=== PATIENT | male | born 1950 | race Caucasian/White ===

== ENCOUNTER 2021-03-05 12:30 | Inpatient (IN) | payer OTHER ==
[~2021-03-05] VITALS: Ht 162.6 cm; Wt 66.2 kg
[~2021-03-05 12:30] MED LIST: AMLO1TAB12 PO; EZET10TA16 PO; ROSU20TA2 PO
--- NOTE | 2021-03-05 12:38 | NUR ---
C/O BUTTOCK & R HIP PAIN S/P GLF TODAY -DEFORMITY. PATIENT A/OX4, BREATHING EVEN AND UNLABORED, NO SOB NOTED. NEEDS ATTENDED. KEPT COMFORTABLE.
--- NOTE | 2021-03-05 12:40 | NUR ---
DR. LEI AT BEDSIDE FOR EVAL.
[2021-03-05] MEDS ORDERED: ONDANSETRON HCL/PF 4 MG/2 ML VIAL ONE (12:52)
[2021-03-05] MEDS ORDERED: MORPHINE SULFATE INJ 2 MG/ML DISP.SYRIN ONE ×2 (12:53→16:34)
[2021-03-05] MEDS ORDERED: ONDANSETRON HCL/PF 4 MG/2 ML VIAL IVP ONE (13:00)
[2021-03-05] MEDS ORDERED: MORPHINE SULFATE INJ 2 MG/ML DISP.SYRIN IV ONE ×2 (13:00→17:00)
[2021-03-05 13:12] LABS: BASOPHILS % (AUTO) 0.8 % (0.0-2.0); EOSINOPHILS % (AUTO) 0.5 % (0.0-6.0); HEMATOCRIT 29 % (39-51); HEMOGLOBIN 9.8 g/dL (13.5-17.5); LYMPHOCYTES # (AUTO) 0.4 K/uL (0.8-4.8); LYMPHOCYTES % (AUTO) 6.7 % (20.0-44.0); MEAN CORPUSCULAR HGB CONC 34 g/dl (31.0-36.0); MEAN CORPUSCULAR VOLUME 95 fL (80-96); MONOCYTES # (AUTO) 0.6 K/uL (0.1-1.30); MONOCYTES % (AUTO) 10.4 % (2.0-12.0); NEUTROPHILS % (AUTO) 81.6 % (43.0-81.0); PLATELET COUNT (AUTO) 216 K/uL (150-450); RED BLOOD CELL COUNT(AUTO) 3.02 MIL/uL (4.5-6.0); WHITE BLOOD COUNT (AUTO) 6.1 K/uL (4.3-11.0)
[2021-03-05 13:21] LABS: CALCIUM, SERUM 9.4 mg/dL (8.5-10.1); CARBON DIOXIDE 23 mmol/L (21-32); CHLORIDE 105 mmol/L (98-107); CREATININE 1.6 mg/dL (0.6-1.3); GLUCOSE 90 mg/dL (74-106); POTASSIUM 4.4 mmol/L (3.5-5.1); SODIUM SERUM 140 mmol/L (136-145); UREA NITROGEN, BLOOD 15 mg/dL (7-18)
[2021-03-05 13:26] LABS: ALANINE AMINOTRANSFERASE 36 U/L (12-78); ALBUMIN 3.5 g/dL (3.4-5.0); ALKALINE PHOSPHATASE 110 U/L (46-116); ASPARTATE AMINOTRANSFERASE 84 U/L (15-37); BILIRUBIN,DIRECT 0.3 mg/dL (0.0-0.2); TOTAL PROTEIN, SERUM 6.3 g/dL (6.4-8.2)
--- NOTE | 2021-03-05 14:42 | NUR ---
PATIENT TAKEN TO CT.
[2021-03-05] MEDS ORDERED: MULT-447 PO (14:47)
[2021-03-05] MEDS ORDERED: SERT50TA12 PO (14:47)
[2021-03-05] MEDS ORDERED: MAGN400T51 PO (14:47)
[2021-03-05] MEDS ORDERED: PANT40TA49 PO (14:47)
[2021-03-05] MEDS ORDERED: POLY15DR40 EACHEYE (14:47)
[2021-03-05] MEDS ORDERED: CARV6.252 PO (14:47)
[2021-03-05] MEDS ORDERED: LORA-258 PO (14:47)
[2021-03-05] MEDS ORDERED: CHOL100062 PO (14:47)
[2021-03-05] MEDS ORDERED: CARB1TAB21 PO (14:47)
[2021-03-05] MEDS ORDERED: DICL100G34 TP (14:47)
[2021-03-05] MEDS ORDERED: OXYM15MI4 NS (14:48)
--- NOTE | 2021-03-05 15:38 | NUR ---
CALLED NURSING SUP FOR M/S BED.
--- NOTE | 2021-03-05 16:00 | NUR ---
NURSING SUP GAVE [phone].
--- NOTE | 2021-03-05 16:25 | NUR ---
REPORT GIVEN TO KWASI BAUTISTA IN [facility]. PATIENT A/OX4, BREATHING EVEN AND UNLABORED, NO SOB NOTED. NEEDS ATTENDED.
--- NOTE | 2021-03-05 16:42 | NUR ---
DR. VICTOR AT BEDSIDE FOR EVAL.
--- NOTE | 2021-03-05 16:58 | NUR ---
PATIENT TRANSFERRED TO ROOM 319 INS TABLE CONDITION.
--- NOTE | 2021-03-05 17:00 | NUR ---
EXTRACT MIXER NOTE RECEIVED PATIENT VIA [facility]. PATIENT IS A/O X4. PATIENT IS BREATHING EVENLY AND NONLABORED ON ROOM AIR. NO SIGNS OF DISTRESS NOTED. PATIENT COMPLAINS OF RIGHT HIP PAIN, WILL NOTIFY MD. PATIENTS VITALS 137/76, HR 88, TEMP 97.8, RR 18 AND O2 SAT 98%. PATIENTS BELONGINGS ACCOUNTED FOR. PATIENT IS NOTED WITH LT ARM DISCOLORATION, BILATERAL LOWER LEG DISCOLORATION AND RT ARE DISCOLORATION. NO OPEN WOUNDS NOTED. PATIENT HAS IV ACCESS LEFT HAND # 22 GAUGE PATENT AND INTACT. PATIENT WAS ORIENTED TO THE ROOM AND HOW TO USE THE CALL LIGHT. SAFETY MEASURES IN PLACE, BED LOW, LOCKED AND CALL LIGHT WITHIN REACH. WILL CONTINUE TO MONITOR
[2021-03-05] MEDS ORDERED: IV D5/ 0.9% NACL 1,000 ML IV ONE (18:00)
[2021-03-05] MEDS ORDERED: POLYVINYL ALCOHOL 15 ML BOTTLE OP PRN (18:30)
[2021-03-05] MEDS: CARBIDOPA/LEVODOPA 25/100 MG 1 UDTAB PO SCH (18:35)
[2021-03-05] MEDS: MORPHINE SULFATE INJ 2 MG/ML DISP.SYRIN IV PRN (18:35)
--- NOTE | 2021-03-05 18:48 | NUR ---
MS RN CLOSING NOTE PATIENT RESTING IN BED, PATIENT IS A/O X4. PATIENT IS BREATHING EVENLY AND NONLABORED ON ROOM AIR. NO SIGNS OF DISTRESS NOTED. PATIENT COMPLAINS OF RIGHT HIP PAIN, MD NOTIFIED WITH NEW ORDER FOR MORPHINE 2MG IV 2HRS PRN, MEDICATION GIVEN ORDERED. PATIENT IS NOTED WITH LT ARM DISCOLORATION, BILATERAL LOWER LEG DISCOLORATION AND RT ARE DISCOLORATION. NO OPEN WOUNDS NOTED. PATIENT HAS IV ACCESS LEFT HAND # 22 GAUGE PATENT AND INTACT RUNNING D5 NS @ 75 ML/HR. SAFETY MEASURES IN PLACE, BED LOW, LOCKED AND CALL LIGHT WITHIN REACH. WILL ENDORSE TO ONCOMING SHIFT
--- NOTE | 2021-03-05 19:00 | NUR ---
Patient is awake, A&Ox4. States that PRN Morphine has not fully kicked in yet. Will check back later. In no cardiac or respiratory distress. All safety measures in place. Reminded of possible surgery and or other procedures in AM and to stay NPO after midnight. On bed rest. IV intact patent and infusing.
[2021-03-05 20:00] VITALS: BP 118/74
[2021-03-05 20:12] LABS: IRON, SERUM 40 ug/dl (50-175); TOTAL IRON BINDING CAPACITY 182 ug/dl (250-450)
[2021-03-05 20:24] LABS: BASOPHILS # (AUTO) 0.1 K/uL (0.0-0.2); BASOPHILS % (AUTO) 1.2 % (0.0-2.0); EOSINOPHILS % (AUTO) 0.3 % (0.0-6.0); HEMATOCRIT 29 % (39-51); HEMOGLOBIN 9.7 g/dL (13.5-17.5); LYMPHOCYTES # (AUTO) 0.4 K/uL (0.8-4.8); MEAN CORPUSCULAR HGB CONC 34 g/dl (31.0-36.0); MEAN CORPUSCULAR VOLUME 96 fL (80-96); MONOCYTES # (AUTO) 0.8 K/uL (0.1-1.30); MONOCYTES % (AUTO) 16.1 % (2.0-12.0); NEUTROPHILS # (AUTO) 3.8 K/uL (1.8-8.9); NEUTROPHILS % (AUTO) 74.4 % (43.0-81.0); PLATELET COUNT (AUTO) 218 K/uL (150-450); RED BLOOD CELL COUNT(AUTO) 2.96 MIL/uL (4.5-6.0); WHITE BLOOD COUNT (AUTO) 5.1 K/uL (4.3-11.0)
[2021-03-05 20:49] LABS: CHOLESTEROL 185 mg/dL (<200); FERRITIN 2240 ng/mL (8-388); HDL CHOLESTEROL 46 mg/dL (40-60); LDL 109 mg/dL (0-99); THYROID STIMULATING HORMONE 1.228 uIU/mL (0.358-3.74); TRIGLYCERIDES 99 mg/dL (30-150)
[2021-03-05] MEDS: LORAZEPAM 0.5 MG TABLET PO PRN (20:50)
--- NOTE | 2021-03-06 05:50 | NUR ---
mrsa swab collected and put in fridge
[2021-03-06] MEDS: MORPHINE SULFATE INJ 2 MG/ML DISP.SYRIN IV PRN ×2 (05:51→08:55)
[2021-03-06 06:27] LABS: ALANINE AMINOTRANSFERASE 38 U/L (12-78); ALKALINE PHOSPHATASE 100 U/L (46-116); ASPARTATE AMINOTRANSFERASE 47 U/L (15-37); BILIRUBIN,TOTAL 0.9 mg/dL (0.2-1.0); CALCIUM, SERUM 8.5 mg/dL (8.5-10.1); CARBON DIOXIDE 24 mmol/L (21-32); CHLORIDE 104 mmol/L (98-107); CREATININE 1.3 mg/dL (0.6-1.3); GLUCOSE 119 mg/dL (74-106); MAGNESIUM 1.9 mg/dL (1.8-2.4); PHOSPHORUS 3.5 mg/dL (2.5-4.9); POTASSIUM 3.7 mmol/L (3.5-5.1); SODIUM SERUM 137 mmol/L (136-145); TOTAL PROTEIN, SERUM 5.8 g/dL (6.4-8.2); UREA NITROGEN, BLOOD 13 mg/dL (7-18)
--- NOTE | 2021-03-06 06:32 | NUR ---
Patient slept well throughout night though easy to wake. Has been NPO since midnight. Continues on IVF. #20G to LFA intact and patent. Patient educated about AM surgical consult and possible surgical intervention. Only c/o pain x1 to R hip relieved by PRN Morphine. Able to use urinal for , no BM overnight. No overnight events. Will continue to monitor.
[2021-03-06 06:51] LABS: BASOPHILS % (AUTO) 0.9 % (0.0-2.0); EOSINOPHILS % (AUTO) 0.6 % (0.0-6.0); HEMATOCRIT 28 % (39-51); HEMOGLOBIN 9.9 g/dL (13.5-17.5); LYMPHOCYTES # (AUTO) 0.4 K/uL (0.8-4.8); LYMPHOCYTES % (AUTO) 9.3 % (20.0-44.0); MEAN CORPUSCULAR HGB CONC 35 g/dl (31.0-36.0); MEAN CORPUSCULAR VOLUME 96 fL (80-96); MONOCYTES % (AUTO) 20.3 % (2.0-12.0); NEUTROPHILS # (AUTO) 3.2 K/uL (1.8-8.9); NEUTROPHILS % (AUTO) 68.9 % (43.0-81.0); PLATELET COUNT (AUTO) 195 K/uL (150-450); RED BLOOD CELL COUNT(AUTO) 2.94 MIL/uL (4.5-6.0); WHITE BLOOD COUNT (AUTO) 4.7 K/uL (4.3-11.0)
--- NOTE | 2021-03-06 08:00 | NUR ---
RN OPENING NOTE: REPORT RECEIVED, ASSESSMENT COMPLETE. RECEIVED PT LYING IN BED. NO ACUTE DISTRESS NOTED. PT CURRENTLY NPO. AWAITING PLAN FOR SURGERY. A+OX4, ABLE TO MAKE NEEDS KNOWN. VSS, AFEBRILE NO SOB NOTED. PT CONTINENT AND USING URINAL AT BEDSIDE. NO COMPLAINTS OF PAIN AT CURRENT TIME. BED IN LOW AND LOCKED POSITION WITH SIDE RAILS UP X 2. CALL LIGHT WITHIN REACH. WILL CONT TO MONITOR PT FOR SAFETY AND COMFORT.
--- NOTE | 2021-03-06 08:10 | NUR ---
RN NOTE: CALL FROM DR. SEALS. NO SURGERY TO BE SCHEDULED TODAY. POSSIBLY TOMORROW. NPO STATUS TO BE D/C'D.
[2021-03-06] MEDS: PANTOPRAZOLE 40 MG TABLET.DR PO SCH (08:18)
[2021-03-06 08:19] VITALS: BP 132/74
[2021-03-06] MEDS: CHOLECALCIFEROL 1,000 UNIT TABLET (VIT D3) PO SCH (08:53)
[2021-03-06] MEDS: CARBIDOPA/LEVODOPA 25/100 MG 1 UDTAB PO SCH ×3 (08:53→16:56)
[2021-03-06] MEDS: MULTIVIT W/MINERALS 1 TAB TABLET PO SCH (08:54)
[2021-03-06] MEDS: MAGNESIUM OXIDE 400 MG TABLET PO SCH (08:54)
[2021-03-06] MEDS: SERTRALINE HCL 50 MG TABLET PO SCH (08:54)
--- NOTE | 2021-03-06 08:55 | NUR ---
RN NOTE: PAIN PT C/O/81/0 RIGHT HIP PAIN. REQUESTING PAIN MEDICATION. ADMINISTERED MORPHINE SULFATE 2MG IVP. WILL CONT TO MONITOR PAIN SCALE AND PRN MEDICATION EFFECTIVENESS
[2021-03-06 14:05] LABS: LYMPHOCYTES % (MANUAL) 9 % (16-48); MONOCYTES % (MANUAL) 17 % (0-11.0); NEUTROPHILS % (MANUAL) 74 (42-76)
[2021-03-06 16:34] VITALS: BP 130/73
[2021-03-06] MEDS: LORAZEPAM 0.5 MG TABLET PO PRN (16:56)
--- NOTE | 2021-03-06 16:57 | NUR ---
RN NOTE: ANXIETY PT EXHIBITING INCREASED ANXIETY. MEDICATED WITH ATIVAN 0.5 MG PO PRN.
--- NOTE | 2021-03-06 19:31 | NUR ---
Patient resting at this time though easy to wake. Aware of surgery scheduled for tomorrow 03/07 at 1400 and he will need to be NPO at least 8 hours prior. Patient states pain is tolerable at this time. NO other issues at this time. Will continue to monitor.
[2021-03-06 20:00] VITALS: BP 119/67
--- NOTE | 2021-03-06 21:27 | NUR ---
IV line out of place. Unable to get new IV access. Called Dr. Becker said okay to schedule for Midline in AM prior to procedure. Order input.
--- NOTE | 2021-03-07 | NUR ---
ICU nurse was able to insert #22G IV to LFA for pain medication administration until midline can be placed in AM.
[2021-03-07] MEDS: MORPHINE SULFATE INJ 2 MG/ML DISP.SYRIN IV PRN (00:22)
[2021-03-07 06:46] LABS: BASOPHILS # (AUTO) 0.1 K/uL (0.0-0.2); BASOPHILS % (AUTO) 1.3 % (0.0-2.0); EOSINOPHILS % (AUTO) 1.6 % (0.0-6.0); HEMATOCRIT 27 % (39-51); HEMOGLOBIN 9.5 g/dL (13.5-17.5); LYMPHOCYTES # (AUTO) 0.5 K/uL (0.8-4.8); LYMPHOCYTES % (AUTO) 12.3 % (20.0-44.0); MEAN CORPUSCULAR HGB CONC 35 g/dl (31.0-36.0); MEAN CORPUSCULAR VOLUME 94 fL (80-96); MONOCYTES # (AUTO) 0.8 K/uL (0.1-1.30); MONOCYTES % (AUTO) 18.6 % (2.0-12.0); NEUTROPHILS # (AUTO) 2.9 K/uL (1.8-8.9); NEUTROPHILS % (AUTO) 66.2 % (43.0-81.0); PLATELET COUNT (AUTO) 227 K/uL (150-450); RED BLOOD CELL COUNT(AUTO) 2.86 MIL/uL (4.5-6.0); WHITE BLOOD COUNT (AUTO) 4.4 K/uL (4.3-11.0)
--- NOTE | 2021-03-07 07:00 | NUR ---
Patient slept well throughout night after pain medication administration at 0022. No other issues. Kept on DVT pumps. Consnts for upcoming surgery completed.
[2021-03-07 07:13] LABS: CALCIUM, SERUM 8.6 mg/dL (8.5-10.1); CREATININE 0.8 mg/dL (0.6-1.3); MAGNESIUM 1.9 mg/dL (1.8-2.4); PHOSPHORUS 3.6 mg/dL (2.5-4.9); POTASSIUM 3.7 mmol/L (3.5-5.1)
[2021-03-07] MEDS: SERTRALINE HCL 50 MG TABLET PO SCH (09:06)
[2021-03-07] MEDS: CHOLECALCIFEROL 1,000 UNIT TABLET (VIT D3) PO SCH (09:06)
[2021-03-07] MEDS: MULTIVIT W/MINERALS 1 TAB TABLET PO SCH (09:06)
[2021-03-07] MEDS: PANTOPRAZOLE 40 MG TABLET.DR PO SCH (09:06)
[2021-03-07] MEDS: CARBIDOPA/LEVODOPA 25/100 MG 1 UDTAB PO SCH ×3 (09:06→17:00)
[2021-03-07] MEDS: MAGNESIUM OXIDE 400 MG TABLET PO SCH (09:06)
[2021-03-07 10:34] LABS: BAND % (MANUAL) 1 % (0.0-5.0); EOSINOPHILS % (MANUAL) 2 % (0-4); LYMPHOCYTES % (MANUAL) 11 % (16-48); MONOCYTES % (MANUAL) 17 % (0-11.0); NEUTROPHILS % (MANUAL) 69 (42-76)
[2021-03-07] MEDS ORDERED: POLYMYXIN B SULFATE 500,000 UNITS ONE ×2 (13:55→14:51)
[2021-03-07] MEDS ORDERED: BUPIVACAINE 0.5 % PF 150 MG/30 ML VIAL ONE (13:55)
[2021-03-07] MEDS ORDERED: MIDAZOLAM HCL 2 MG/2ML VIAL ONE (14:06)
[2021-03-07] MEDS ORDERED: FENTANYL PF 250MCG/5ML AMPUL ONE (14:06)
[2021-03-07] MEDS ORDERED: FAMOTIDINE/PF INJ 20 MG/2 ML VIAL IV ONE (14:07)
[2021-03-07] MEDS ORDERED: ROCURONIUM BROMIDE 50 MG/5 ML ONE (14:07)
[2021-03-07] MEDS ORDERED: TRANEXAMIC ACID 1,000 MG in IV NS 0.9% 100 ML IV ONE (14:30)
[2021-03-07] MEDS ORDERED: MORPHINE SULFATE INJ 4 MG/ML DISP.SYRIN ONE (14:51)
[2021-03-07] MEDS ORDERED: KETOROLAC TROMETHAMINE INJ 30 MG/ML VIAL ONE (14:51)
[2021-03-07] MEDS ORDERED: LIDOCAINE 2% 50 ML MDV IJ ONE (14:51)
[2021-03-07] MEDS ORDERED: VANCOMYCIN 1 GM VIAL ONE (14:55)
[2021-03-07] MEDS ORDERED: FENTANYL PF 100MCG/2ML AMPUL ONE (17:17)
[2021-03-07] MEDS ORDERED: ALBUMIN 5% 250 ML IV ONE (17:20)
--- NOTE | 2021-03-07 19:15 | NUR ---
RN NOTE RECIEVED PT FROM PACU @ 1856, PT VITALS TAKEN AND ON O2 FOR COMFORT POST SURGERY, POST OP VITALS 99/69 , P 72 , TEMP 97.8 , RR 18 , O2 P8% ON RA AND O2. Pharmacy called twice @ 1855 and @ 1905 for H&H blood draw. REPORT GIVEN TO NIGHT NURSE FOR JOHN.
[2021-03-07 20:00] VITALS: BP 99/47
--- NOTE | 2021-03-07 20:01 | NUR ---
RN OPENING RECEIVED PATIENT IN BED. CONFUSED RIGHT NOW -- CAME BACK FROM SURGERY. NO S/S OF APPARENT DISTRESS IN ROOM AIR. NO C/O PAIN AT THIS TIME. NO FLUIDS RUNNING AT THIS TIME. SAFETY IN PLACE. WILL CONTINUE TO MONITOR.
[2021-03-07 20:02] LABS: HEMOGLOBIN 9.3 g/dL (13.5-17.5)
[2021-03-07] MEDS: SOD FERRIC GLUC 125 MG in IV NS 0.9% 100 ML IV SCH (20:08)
[2021-03-07] MEDS: CLINDAMYCIN 900 MG in IV D5W 50 ML IV SCH (23:04)
[2021-03-08] MEDS: VANCOMYCIN 500 MG in IV D5W 100ml IV SCH ×2 (00:02→08:22)
[2021-03-08] MEDS: MORPHINE SULFATE INJ 2 MG/ML DISP.SYRIN IV PRN ×2 (02:01→06:26)
--- NOTE | 2021-03-08 02:06 | NUR ---
MS RN NOTE PATIENT C/O 03/06 PAIN. GIVEN MORPHINE SULFATE INJ IV 2MG. WILL REASSESS AND CONTINUE TO MONITOR.
--- NOTE | 2021-03-08 06:26 | NUR ---
MS RN NOTES PATIENT C/O 10/ PAIN. ADMINISTERED MORPHINE 2MG PRN. WILL REASSESS.
[2021-03-08] MEDS: CLINDAMYCIN 900 MG in IV D5W 50 ML IV SCH (06:31)
--- NOTE | 2021-03-08 06:52 | NUR ---
MS RN CLOSING NOTE PATIENT IN BED. A/OX4. NO S/S OF APPARENT DISTRESS. NO C/O PAIN AT THIS TIME PAIN MANAGED WITH MEDICATIONS. IV CLINDAMYCIN RUNNING AT THIS TIME. ALL NEEDS ATTENDED. ALL SCHED MEDICATION ADMINISTERED. CALLAHAN CATH DRAINING CLOUDY YELLOW URINE WITH OUTPUT OF 400 CC-- IRRIGATED. SAFETY KEPT IN PLACE THE WHOLE SHIFT. WILL ENDORSE CARE TO MORNING SHIFT RN.
--- NOTE | 2021-03-08 07:30 | NUR ---
RN-NOTES RECEIVED PATIENT SLEEPING WITH BREATHING EVEN AND NONLABORED,EASILY AROUSED,NO ACUTE DISTRESS NOTED. IV LINE ON LEFT FA AND PAGE MIDLINE, INTACT NO S/S OF COMPLICATION NOTED AT THIS TIME.PATIENT USING URINALS. CALL LIGHT WITHIN REACH . WILL CONT. MONITORING FOR SAFETY.
[2021-03-08 08:00] VITALS: BP 102/61
[2021-03-08 09:31] LABS: BASOPHILS # (AUTO) 0.1 K/uL (0.0-0.2); BASOPHILS % (AUTO) 1.2 % (0.0-2.0); EOSINOPHILS % (AUTO) 0.2 % (0.0-6.0); HEMATOCRIT 23 % (39-51); HEMOGLOBIN 7.9 g/dL (13.5-17.5); LYMPHOCYTES # (AUTO) 0.4 K/uL (0.8-4.8); LYMPHOCYTES % (AUTO) 5.6 % (20.0-44.0); MEAN CORPUSCULAR HGB CONC 35 g/dl (31.0-36.0); MEAN CORPUSCULAR VOLUME 96 fL (80-96); MONOCYTES % (AUTO) 15.1 % (2.0-12.0); NEUTROPHILS # (AUTO) 5.3 K/uL (1.8-8.9); NEUTROPHILS % (AUTO) 77.9 % (43.0-81.0); PLATELET COUNT (AUTO) 292 K/uL (150-450); RED BLOOD CELL COUNT(AUTO) 2.37 MIL/uL (4.5-6.0); WHITE BLOOD COUNT (AUTO) 6.8 K/uL (4.3-11.0)
[2021-03-08] MEDS: PANTOPRAZOLE 40 MG TABLET.DR PO SCH (10:10)
[2021-03-08] MEDS: MAGNESIUM OXIDE 400 MG TABLET PO SCH (10:10)
[2021-03-08] MEDS: SERTRALINE HCL 50 MG TABLET PO SCH (10:10)
[2021-03-08] MEDS: CHOLECALCIFEROL 1,000 UNIT TABLET (VIT D3) PO SCH (10:10)
[2021-03-08] MEDS: CARBIDOPA/LEVODOPA 25/100 MG 1 UDTAB PO SCH ×3 (10:10→17:18)
[2021-03-08] MEDS: MULTIVIT W/MINERALS 1 TAB TABLET PO SCH (10:10)
--- NOTE | 2021-03-08 11:22 | NUR ---
RN-notes Seen by Dr. Bowers with verbal orders.Noted and carried out.
[2021-03-08] MEDS ORDERED: HYDROCODONE/APAP 5/325MG TABLET PO PRN ×2 (11:30)
[2021-03-08] MEDS: SOD FERRIC GLUC 125 MG in IV NS 0.9% 100 ML IV SCH (14:51)
[2021-03-08 15:12] LABS: HEMATOCRIT 24 % (39-51); HEMOGLOBIN 8.6 g/dL (13.5-17.5); MEAN CORPUSCULAR HGB CONC 36 g/dl (31.0-36.0); MEAN CORPUSCULAR VOLUME 96 fL (80-96); PLATELET COUNT (AUTO) 344 K/uL (150-450); RED BLOOD CELL COUNT(AUTO) 2.53 MIL/uL (4.5-6.0)
[2021-03-08 16:00] VITALS: BP 92/53
--- NOTE | 2021-03-08 18:21 | NUR ---
RN-NOTES PATIENT LYING IN BED INTERMITTENTLY SLEEPING ,NO ACUTE DISTRESS NOTED. PATIENT PAGE, AND LFA IV LINE INTACT NO S/S OF COMPLICATION NOTED AT THE SITE AT THIS TIME. PATIENT A/O X3 ABLE TO MAKE NEEDS KNOWN. ENCOURAGED TO REPOSITION 2 HR TO PREVENT FROM DEVELOPING SORES. PATIENT VERBALIZED UNDERSTANDING. CALL LIGHT WITHIN REACH.ALL NEEDS ATTENDED AND ANTICIPATED. WILL ENDORSE TO INCOMING NURSE FOR CONTINUITY OF CARE..
[2021-03-08] MEDS: ENSURE ENLIVE CHOC 237 ML CAN PO SCH (19:01)
[2021-03-08] MEDS: ASCORBIC ACID 500 MG TABLET PO SCH (19:03)
[2021-03-08] MEDS: CALCIUM CARB 250MG /VITAMIN D 1 UDTAB PO SCH (19:03)
[2021-03-08] MEDS: ZINC SULFATE 220 MG CAPSULE PO SCH (19:03)
--- NOTE | 2021-03-08 19:57 | NUR ---
RN OPENING NOTES: RECEIVED PATIENT AWAKE IN BED, BED IN LOW POSITION, CALL LIGHTS WITHIN REACH, NO COMPLAIN OD PAIN AND DISCOMFORT AT THIS TIME, PATIENT IS A/O X4 INCONTINENT, USING URINALS, ON REGULAR DIET, PATIENT KEPT CLEAN AND DRY, WILL CONTINUE TO MONITOR.
[2021-03-08 20:00] VITALS: BP 95/56
[2021-03-08 22:46] LABS: HEMATOCRIT 23 % (39-51); MEAN CORPUSCULAR HGB CONC 35 g/dl (31.0-36.0); MEAN CORPUSCULAR VOLUME 95 fL (80-96); PLATELET COUNT (AUTO) 236 K/uL (150-450); RED BLOOD CELL COUNT(AUTO) 2.44 MIL/uL (4.5-6.0); WHITE BLOOD COUNT (AUTO) 7.2 K/uL (4.3-11.0)
[2021-03-09] MEDS: HYDROCODONE/APAP 5/325MG TABLET PO PRN ×2 (05:31→14:32)
--- NOTE | 2021-03-09 06:38 | NUR ---
MS RN CLOSING NOTE: PATIENT AWAKE IN BED, NO COMPLAIN OF PAIN AND DISCOMFORT AT THIS TIME, A/OX4 AMBULATORY WITH WALKER WITH IV LINE AT LFA #22 SL. AND PAGE MIDLINE INFUSING WELL, PATIENT ON ROOM AIR, NO SOB NOTED, NO BLEEDING ON SURGICAL SITE, ALL NEEDS MET, KEPT CLEAN AN DRY, ENDORSE TO INCOMING SHIFT.
[2021-03-09 07:13] LABS: BASOPHILS % (AUTO) 0.7 % (0.0-2.0); EOSINOPHILS % (AUTO) 0.1 % (0.0-6.0); HEMATOCRIT 21 % (39-51); HEMOGLOBIN 7.4 g/dL (13.5-17.5); LYMPHOCYTES # (AUTO) 0.4 K/uL (0.8-4.8); MEAN CORPUSCULAR HGB CONC 36 g/dl (31.0-36.0); MEAN CORPUSCULAR VOLUME 95 fL (80-96); MONOCYTES % (AUTO) 15.8 % (2.0-12.0); NEUTROPHILS % (AUTO) 77.4 % (43.0-81.0); PLATELET COUNT (AUTO) 229 K/uL (150-450); RED BLOOD CELL COUNT(AUTO) 2.18 MIL/uL (4.5-6.0); WHITE BLOOD COUNT (AUTO) 6.5 K/uL (4.3-11.0)
[2021-03-09 07:36] LABS: CALCIUM, SERUM 8.2 mg/dL (8.5-10.1); CREATININE 1.1 mg/dL (0.6-1.3); MAGNESIUM 1.7 mg/dL (1.8-2.4); PHOSPHORUS 3.9 mg/dL (2.5-4.9); POTASSIUM 3.9 mmol/L (3.5-5.1)
[2021-03-09] MEDS: ENSURE ENLIVE CHOC 237 ML CAN PO SCH ×3 (08:00→18:32)
[2021-03-09] MEDS: CALCIUM CARB 250MG /VITAMIN D 1 UDTAB PO SCH ×3 (08:34→18:32)
[2021-03-09] MEDS: SERTRALINE HCL 50 MG TABLET PO SCH (08:34)
[2021-03-09] MEDS: CHOLECALCIFEROL 1,000 UNIT TABLET (VIT D3) PO SCH (08:34)
[2021-03-09] MEDS: ZINC SULFATE 220 MG CAPSULE PO SCH (08:34)
[2021-03-09] MEDS: PANTOPRAZOLE 40 MG TABLET.DR PO SCH (08:34)
[2021-03-09] MEDS: ASCORBIC ACID 500 MG TABLET PO SCH ×2 (08:34→18:34)
[2021-03-09] MEDS: MAGNESIUM OXIDE 400 MG TABLET PO SCH (08:34)
[2021-03-09] MEDS: MULTIVIT W/MINERALS 1 TAB TABLET PO SCH (08:34)
[2021-03-09] MEDS: CARBIDOPA/LEVODOPA 25/100 MG 1 UDTAB PO SCH ×3 (08:35→18:32)
[2021-03-09 09:45] VITALS: BP 94/56
[2021-03-09 10:24] LABS: EOSINOPHILS % (MANUAL) 1 % (0-4); LYMPHOCYTES % (MANUAL) 6 % (16-48); MONOCYTES % (MANUAL) 13 % (0-11.0); NEUTROPHILS % (MANUAL) 80 (42-76)
[2021-03-09 16:18] VITALS: BP 104/60
[2021-03-09] MEDS: SOD FERRIC GLUC 125 MG in IV NS 0.9% 100 ML IV SCH (16:25)
[2021-03-09] MEDS: LORAZEPAM 0.5 MG TABLET PO PRN (16:52)
[2021-03-09 17:51] LABS: HEMOGLOBIN 7.4 g/dL (13.5-17.5)
--- NOTE | 2021-03-09 19:20 | NUR ---
MS RN OPENING NOTE PATIENT A/OX3; ABLE TO MAKE NEEDS KNOWN. FOUND PATIENT SITTING ON THE FLOOR STATING "I DIDNT FALL I SLIPPED." PATIENT DENIES PAIN OR HITTING HEAD. SKIN INTACT AND NO DISCOLORATION. VSS WNL. TOLERATING ROOM AIR WELL WITH NO SOB. LFA #22G S/L; AND LFA #22G S/L; AND PAGE MIDLINE S/L; PATENT AND INTACT. SAFETY MEASURES IN PLACE: BED IN LOWEST LOCKED POSITION, SIDE RAILS UPX2, CALL LIGHT WITHIN EASY REACH, BED ALARMS ON. PATIENT IN STABLE CONDITION; WILL CONT. PLAN OF CARE.
[2021-03-09 20:00] VITALS: BP 133/78
[2021-03-10] VITALS: BP 126/74
[2021-03-10] MEDS: MORPHINE SULFATE INJ 2 MG/ML DISP.SYRIN IV PRN ×2 (01:16→09:58)
--- NOTE | 2021-03-10 01:16 | NUR ---
MS RN NOTE - PAIN PATIENT C/O 04/06 RIGHT HIP PAIN. ADMINISTERED MORPHINE ORDERED. WILL CONTINUE TO REASSESS FOR PAIN IN 30 MINUTES.
[2021-03-10] MEDS ORDERED: MAG HYDROX/AL HYDROX/SIMETH 30 ML UDC PO PRN (03:00)
--- NOTE | 2021-03-10 03:21 | NUR ---
MS RN NOTE - HEART BURN PT C/O HEART BURN. ADMINISTERED MAALOX ORDERED. WILL REASSESS PATIENT FOR HEART BURN RELIEF IN 30 MINUTES.
--- NOTE | 2021-03-10 06:13 | NUR ---
MS RN CLOSING NOTE PATIENT A/OX3; ABLE TO MAKE NEEDS KNOWN. TOLERATING ROOM AIR WELL WITH NO SOB. LFA #22G S/L; AND LFA #22G S/L; AND PAGE MIDLINE S/L; PATENT AND INTACT. SAFETY MEASURES IN PLACE: BED IN LOWEST LOCKED POSITION, SIDE RAILS UPX2, CALL LIGHT WITHIN EASY REACH, BED ALARMS ON. PATIENT IN STABLE CONDITION; WILL ENDORSE PLAN OF CARE TO ONCOMING MORNING RN.
[2021-03-10] MEDS: PANTOPRAZOLE 40 MG TABLET.DR PO SCH (06:50)
[2021-03-10] MEDS: LORAZEPAM 0.5 MG TABLET PO PRN (06:50)
--- NOTE | 2021-03-10 06:50 | NUR ---
MS RN NOTE - ATIVAN PT C/O OF FEELING RESTLESS. ADMINISTERED ATIVAN ORDERED. WILL ENDORSE AM RN TO CONTINUE TO MONITOR
[2021-03-10 06:51] LABS: BASOPHILS % (AUTO) 0.3 % (0.0-2.0); EOSINOPHILS % (AUTO) 0.1 % (0.0-6.0); HEMATOCRIT 25 % (39-51); HEMOGLOBIN 8.6 g/dL (13.5-17.5); LYMPHOCYTES # (AUTO) 0.3 K/uL (0.8-4.8); LYMPHOCYTES % (AUTO) 3.9 % (20.0-44.0); MEAN CORPUSCULAR HGB CONC 34 g/dl (31.0-36.0); MEAN CORPUSCULAR VOLUME 98 fL (80-96); MONOCYTES # (AUTO) 0.9 K/uL (0.1-1.30); MONOCYTES % (AUTO) 10.8 % (2.0-12.0); NEUTROPHILS # (AUTO) 7.1 K/uL (1.8-8.9); NEUTROPHILS % (AUTO) 84.9 % (43.0-81.0); PLATELET COUNT (AUTO) 244 K/uL (150-450); RED BLOOD CELL COUNT(AUTO) 2.57 MIL/uL (4.5-6.0); WHITE BLOOD COUNT (AUTO) 8.3 K/uL (4.3-11.0)
[2021-03-10 07:16] LABS: CALCIUM, SERUM 9.3 mg/dL (8.5-10.1); CREATININE 1.1 mg/dL (0.6-1.3); MAGNESIUM 2.1 mg/dL (1.8-2.4); POTASSIUM 3.9 mmol/L (3.5-5.1)
--- NOTE | 2021-03-10 07:41 | NUR ---
MS RN OPENING NOTES RECEIVED PATIENT IN BED, AWAKE, A/OX3, WITH PERIODS OF FORGETFULNESS NOTED; ABLE TO MAKE NEEDS KNOWN. TOLERATING ROOM AIR WELL WITH NO SOB. LFA #22G S/L; AND LFA #22G S/L; AND PAGE MIDLINE S/L; PATENT AND INTACT. NO C/O PAIN AT THIS TIME. SAFETY MEASURES IN PLACE: BED IN LOWEST LOCKED POSITION, SIDE RAILS UPX2, CALL LIGHT WITHIN EASY REACH, BED ALARMS ON. WILL MONITOR PATIENT ACCORDINGLY.
[2021-03-10] MEDS: ENSURE ENLIVE CHOC 237 ML CAN PO SCH ×3 (07:48→16:59)
[2021-03-10 08:00] VITALS: BP 121/74
[2021-03-10] MEDS: MULTIVIT W/MINERALS 1 TAB TABLET PO SCH (08:11)
[2021-03-10] MEDS: ZINC SULFATE 220 MG CAPSULE PO SCH (08:11)
[2021-03-10] MEDS: MAGNESIUM OXIDE 400 MG TABLET PO SCH (08:11)
[2021-03-10] MEDS: CHOLECALCIFEROL 1,000 UNIT TABLET (VIT D3) PO SCH (08:11)
[2021-03-10] MEDS: CALCIUM CARB 250MG /VITAMIN D 1 UDTAB PO SCH ×3 (08:12→17:02)
[2021-03-10] MEDS: CARBIDOPA/LEVODOPA 25/100 MG 1 UDTAB PO SCH ×3 (08:12→17:02)
[2021-03-10] MEDS: ASCORBIC ACID 500 MG TABLET PO SCH ×2 (08:12→17:02)
[2021-03-10] MEDS: SERTRALINE HCL 50 MG TABLET PO SCH (08:12)
--- NOTE | 2021-03-10 13:20 | NUR ---
RN NOTES FOR D/C PLANNING. SPOKE TO MARCO HOUSESMITH REGARDING PATIENT'S CONCERN. INFORM HER TO GET IN TOUCH WITH THE PATIENT'S FOR THE PAPER WORKS SHE IS ASKING ABOUT. PHONE NUMBER AND E-MAIL ADDRESS PROVIDED.
[2021-03-10] MEDS: SOD FERRIC GLUC 125 MG in IV NS 0.9% 100 ML IV SCH (13:58)
--- NOTE | 2021-03-10 15:20 | NUR ---
RN NOTES COVID 19 TEST RESULTS FAXED TO [facility] C/O [facility] AT [phone].
[2021-03-10 16:00] VITALS: BP 120/78
--- NOTE | 2021-03-10 18:28 | NUR ---
MS RN CLOSING NOTES PATIENT IN BED, AWAKE, A/OX3, WITH PERIODS OF FORGETFULNESS NOTED; ABLE TO MAKE NEEDS KNOWN. TOLERATING ROOM AIR WELL WITH NO SOB. LFA #22G S/L; AND LFA #22G S/L; AND PAGE MIDLINE S/L; PATENT AND INTACT. NO C/O PAIN AT THIS TIME. WITH MULTIPLE DISCOLORATION ON UPPER EXTREMITIES. SAFETY MEASURES IN PLACE: BED IN LOWEST LOCKED POSITION, SIDE RAILS UPX2, CALL LIGHT WITHIN EASY REACH, BED ALARMS ON. ALL NEEDS ATTENDED, WILL ENDORSE TO ONCOMING SHIFT FOR JOHN.
--- NOTE | 2021-03-10 19:53 | NUR ---
MS RN OPENING NOTE RECEIVED PT AWAKE IN BED. A/O X3 WITH PERIODS OF FORGETFULNESS. PT ABLE TO MAKE NEEDS KNOWN. PT IS STABLE ON ROOM AIR. NO SOB OR S/S OF RESPIRATORY DISTRESS NOTED. IV ACCESS IN LFA #22 S/L, LFA #22 S/L, AND PAGE MIDLINE S/L; INTACT AND PATENT. PT HAS NO C/O PAIN OR DISCOMFORT AT THIS TIME. SAFETY PRECAUTIONS MAINTAINED. BED IN LOWEST LOCKED POSITION, HOB ELEVATED, SIDE RAILS UP X2, BED ALARM ON. CALL LIGHT AND TABLE WITHIN REACH. WILL CONTINUE WITH PLAN OF CARE.
[2021-03-10 20:00] VITALS: BP 120/67
[2021-03-10] MEDS: HYDROCODONE/APAP 5/325MG TABLET PO PRN (23:35)
--- NOTE | 2021-03-10 23:35 | NUR ---
RN PAIN PT C/O CHRONIC RIGHT HIP PAIN, RATED 7/10 ON PAIN SCALE. VSS. PER PT REQUEST, ADMINISTERED NORCO [phone] 2 TABS PO Q4H PRN FOR PAIN. WILL CONTINUE TO MONITOR PT.
[2021-03-11 05:48] LABS: HEMATOCRIT 21 % (39-51); HEMOGLOBIN 7.2 g/dL (13.5-17.5); MEAN CORPUSCULAR HGB CONC 35 g/dl (31.0-36.0); MEAN CORPUSCULAR VOLUME 96 fL (80-96); PLATELET COUNT (AUTO) 271 K/uL (150-450); RED BLOOD CELL COUNT(AUTO) 2.16 MIL/uL (4.5-6.0); WHITE BLOOD COUNT (AUTO) 5.6 K/uL (4.3-11.0)
--- NOTE | 2021-03-11 06:23 | NUR ---
MS RN CLOSING NOTE PT IS IN BED WITH EYES CLOSED, AROUSABLE TO STIMULATION. A/O X3 WITH PERIODS OF FORGETFULNESS. PT ABLE TO MAKE NEEDS KNOWN. PT IS STABLE ON ROOM AIR. NO SOB OR S/S OF RESPIRATORY DISTRESS NOTED. IV ACCESS IS INTACT, PATENT, AND FLUSHING WELL. PT HAS NO C/O PAIN OR DISCOMFORT AT THIS TIME. ALL NEEDS HAVE BEEN MET. PAIN MANAGEMENT ADMINISTERED PER ORDER. SAFETY PRECAUTIONS MAINTAINED AT ALL TIMES. BED IN LOWEST LOCKED POSITION, HOB ELEVATED, SIDE RAILS UP X2, BED ALARM ON. CALL LIGHT AND TABLE WITHIN REACH. WILL ENDORSE TO ONCOMING NURSE FOR JOHN.
--- NOTE | 2021-03-11 07:14 | NUR ---
MS RN OPENING NOTE RECEIVED PT RESTING IN BED. A/O X3 WITH PERIODS OF FORGETFULNESS. PT ABLE TO MAKE NEEDS KNOWN. PT IS BREATHING EVENLY AND NONLABORED, STABLE ON ROOM AIR. NO SOB OR S/S OF RESPIRATORY DISTRESS NOTED. IV ACCESS IN LFA #22 S/L, LFA #22 S/L, AND PAGE MIDLINE S/L; INTACT AND PATENT. PT HAS NO C/O PAIN OR DISCOMFORT AT THIS TIME. SAFETY PRECAUTIONS MAINTAINED. BED IN LOWEST LOCKED POSITION, HOB ELEVATED, SIDE RAILS UP X2, BED ALARM ON. CALL LIGHT AND TABLE WITHIN REACH. WILL CONTINUE TO MONITOR
[2021-03-11] MEDS: ENSURE ENLIVE CHOC 237 ML CAN PO SCH (07:41)
[2021-03-11 08:00] VITALS: BP 137/67
[2021-03-11] MEDS: ZINC SULFATE 220 MG CAPSULE PO SCH (08:20)
[2021-03-11] MEDS: MULTIVIT W/MINERALS 1 TAB TABLET PO SCH (08:20)
[2021-03-11] MEDS: MAGNESIUM OXIDE 400 MG TABLET PO SCH (08:20)
[2021-03-11] MEDS: ASCORBIC ACID 500 MG TABLET PO SCH (08:20)
[2021-03-11] MEDS: CHOLECALCIFEROL 1,000 UNIT TABLET (VIT D3) PO SCH (08:20)
[2021-03-11] MEDS: SERTRALINE HCL 50 MG TABLET PO SCH (08:20)
[2021-03-11] MEDS: CALCIUM CARB 250MG /VITAMIN D 1 UDTAB PO SCH (08:20)
[2021-03-11] MEDS: PANTOPRAZOLE 40 MG TABLET.DR PO SCH (08:20)
[2021-03-11] MEDS: CARBIDOPA/LEVODOPA 25/100 MG 1 UDTAB PO SCH (08:20)
--- NOTE | 2021-03-11 10:00 | NUR ---
RN NOTE REPORT GIVEN TO CLYDE DIAZ [facility] FOR JOHN
--- NOTE | 2021-03-11 11:16 | NUR ---
CONTACT LENS CUTTER NOTE RECEIVED ORDER FOR DISCHARGE. PATIENT IS A/OX3. PATIENT IS BREATHING EVENLY AND NONLABORED ON ROOM AIR. PATIENT DOES NOT COMPLAIN OF ANY PAIN AT THIS TIME. PATIENT WAS GIVEN DISCHARGE INSTRUCTIONS BOTH VERBALLY AND IN WRITTEN FORM. REPORT GIVEN TO ARU. PATIENT VERBALIZED UNDERSTANDING ALL BELONGINGS ACCOUNTED FOR. PATIENT'S IV ACCESS WAS REMOVED EXCEPT MIDLINE, FACILITY ASKED TO KEEP IT IN, IN CASE IT WAS NEEDED. PRESSURE DRESSINGS APPLIED, PATIENT LEFT VIA AMBULANCE IN STABLE CONDITION
== END 2021-03-11 10:30 | DRG 521 ==
LOC: ER 12:34 → MED 16:18
PROVIDERS: ADMIT Internal Medicine Nephrology; ATTEND Internal Medicine Nephrology
PROC: 0SR902Z Replacement of Right Hip Joint with Metal on Polyethylene Synthetic Substitute, Open Approach (ICD-10-PCS; principal; 2021-03-07)
PROC: 05HA33Z Insertion of Infusion Device into Left Brachial Vein, Percutaneous Approach (ICD-10-PCS; 2021-03-07)
DX: S72.011A Unspecified intracapsular fracture of right femur, initial encounter for closed fracture (principal); N17.0 Acute kidney failure with tubular necrosis; W18.30XA Fall on same level, unspecified, initial encounter; Y92.009 Unspecified place in unspecified non-institutional (private) residence as the place of occurrence of the external cause; D64.9 Anemia, unspecified; I10 Essential (primary) hypertension; Z20.822 Contact with and (suspected) exposure to COVID-19; K21.9 Gastro-esophageal reflux disease without esophagitis; E78.00 Pure hypercholesterolemia, unspecified; Z98.890 Other specified postprocedural states; Z88.0 Allergy status to penicillin; Z79.899 Other long term (current) drug therapy; F41.9 Anxiety disorder, unspecified; E78.5 Hyperlipidemia, unspecified; M16.11 Unilateral primary osteoarthritis, right hip; M81.0 Age-related osteoporosis without current pathological fracture; G20 Parkinson's disease
CPT/HCPCS: 36410; 36415; 71045-TC; 72170-TC; 73501; 73502; 73700-TC; 80048-TC; 80053-TC; 80061-TC; 80076-TC; 82728-TC; 83540-TC; 83735-TC; 84100-TC; 84439-TC; 84443-TC; 84484-TC; 85025-TC; 85027-TC; 85730-TC; 86850-TC; 87081-TC; 88305-TC; 88311-TC; 93307-TC; 97110-TC; 97112-TC; 97116-TC; 97530-TC; A4217; A6209; A6253; C1776; C9803; G0378; J0690; J1885; J2250; J2270; J2405; J2704; J2765; J2916; J3010; J3370; J3490; J7030; J7042; J7050; J7060; P9045

== ENCOUNTER 2024-06-21 04:52 | Inpatient (IN) | payer MEDICARE, OTHER ==
[~2024-06-21] VITALS: Ht 162.6 cm; Wt 60.3 kg
[~2024-06-21 04:52] MED LIST changes: -AMLO1TAB12 PO; +CARB1TAB21 PO; +CARV6.252 PO; +CHOL100062 PO; +DICL100G34 TP; -EZET10TA16 PO; +LORA-258 PO; +MAGN400T51 PO; +MULT-447 PO; +OXYM15MI4 NS; +PANT40TA49 PO; +POLY15DR40 EACHEYE; -ROSU20TA2 PO; +SERT50TA12 PO
[2024-06-21 05:20] LABS: BASOPHILS % (AUTO) 0.6 % (0.0-2.0); EOSINOPHILS % (AUTO) 0.1 % (0.0-6.0); HEMATOCRIT 30 % (39-51); HEMOGLOBIN 10.5 g/dL (13.5-17.5); LYMPHOCYTES # (AUTO) 0.5 K/uL (0.8-4.8); LYMPHOCYTES % (AUTO) 9.7 % (20.0-44.0); MEAN CORPUSCULAR HEMOGLOBIN 35 PG (26.0-33.0); MEAN CORPUSCULAR HGB CONC 35 g/dl (31.0-36.0); MEAN CORPUSCULAR VOLUME 101 fL (80-96); MONOCYTES # (AUTO) 0.8 K/uL (0.1-1.30); NEUTROPHILS # (AUTO) 4.1 K/uL (1.8-8.9); NEUTROPHILS % (AUTO) 74.6 % (43.0-81.0); PLATELET COUNT (AUTO) 188 K/uL (150-450); RED BLOOD CELL COUNT(AUTO) 3.03 MIL/uL (4.5-6.0); RED CELL DISTRIBUTION WIDTH 12.8 % (11.5-15.0); WHITE BLOOD COUNT (AUTO) 5.4 K/uL (4.3-11.0)
[2024-06-21 05:39] LABS: INR 1.02 (0.91-1.10); PARTIAL THROMBOPLASTIN TIME 23.6 SEC (24.3-34.3); PROTHROMBIN TIME 10.8 SECS (9.2-11.1)
[2024-06-21 05:41] LABS: CALCIUM, SERUM 8.5 mg/dL (8.5-10.1); CARBON DIOXIDE 22 mmol/L (21-32); CHLORIDE 107 mmol/L (98-107); CREATININE 0.6 mg/dL (0.6-1.3); GLUCOSE 122 mg/dL (74-106); POTASSIUM 3.5 mmol/L (3.5-5.1); SODIUM SERUM 143 mmol/L (136-145); UREA NITROGEN, BLOOD 14 mg/dL (7-18)
[2024-06-21] MEDS ORDERED: POLYVINYL ALCOHOL 15 ML BOTTLE EACHEYE PRN (07:00)
[2024-06-21] MEDS ORDERED: EZET10TA32 PO (07:39)
[2024-06-21] MEDS ORDERED: AMLODIPINE PO (07:39)
[2024-06-21] MEDS ORDERED: FOLI0.8C PO (07:39)
[2024-06-21] MEDS ORDERED: OMEP40CA21 PO (07:39)
[2024-06-21] MEDS ORDERED: MENT118G TP (07:39)
[2024-06-21 08:00] VITALS: BP 130/90; TEMP 99.3; O2SAT 97
[2024-06-21] MEDS: PANTOPRAZOLE 40 MG VIAL IV SCH (08:17)
[2024-06-21] MEDS: CARVEDILOL 6.25 MG TABLET PO SCH (08:18)
[2024-06-21] MEDS: CHOLECALCIFEROL 1,000 UNIT TABLET (VIT D3) PO SCH (08:19)
[2024-06-21] MEDS: CARBIDOPA/LEVODOPA 25/100 MG 1 UDTAB PO SCH (08:19)
[2024-06-21] MEDS: MULTIVIT W/MINERALS 1 TAB TABLET PO SCH (08:19)
[2024-06-21] MEDS: SERTRALINE HCL 50 MG TABLET PO SCH (08:19)
[2024-06-21] MEDS: MAGNESIUM OXIDE 400 MG TABLET PO SCH (08:26)
[2024-06-21] MEDS: Magnesium 1GM/D5W 100ML PREMIX 100 ML IV SCH (09:19)
[2024-06-21] MEDS: MORPHINE SULFATE INJ 2 MG/ML DISP.SYRIN IV PRN (09:19)
[2024-06-21] MEDS: ONDANSETRON HCL/PF 4 MG/2 ML VIAL IVP PRN (09:58)
[2024-06-21] MEDS ORDERED: Magnesium 1GM/D5W 100ML PREMIX 100 ML IV SCH (10:00)
[2024-06-21 11:28] LABS: THYROID STIMULATING HORMONE 1.86 uIU/mL (0.358-3.74)
[2024-06-21 16:14] LABS: APPEARANCE,URINE CLEAR (CLEAR); BILIRUBIN,URINE 1+ (NEGATIVE); BLOOD, URINE NEGATIVE Ery/uL (NEGATIVE); COLOR,URINE YELLOW (YELLOW); KETONES,URINE NEGATIVE (NEGATIVE); LEUKOCYTE ESTERASE ,URINE NEGATIVE (NEGATIVE); NITRITE, URINE NEGATIVE (NEGATIVE); PH,URINE 5.5 (5.0-8.0); PROTEIN,URINE NEGATIVE (NEGATIVE); UGLUCOSE NEGATIVE (NEGATIVE)
[2024-06-21 16:15] VITALS: BP 108/80; TEMP 97.7; O2SAT 97
[2024-06-21 16:20] LABS: ADD URINE CULTURE NO; BACTERIA,URINE Rare /HPF (None Seen); RBC,URINE 0-2 /HPF (0-2); SQUAMOUS EPITHELIAL CELL,UR Rare /HPF (None Seen); WBC,URINE 0-2 /HPF (0-3)
[2024-06-21 20:00] VITALS: BP 119/78; TEMP 98; O2SAT 100
[2024-06-21] MEDS: LORAZEPAM 0.5 MG TABLET PO PRN (22:26)
[2024-06-21] MEDS: IV NS 0.9% 1,000 ML IV SCH (23:00)
[2024-06-22 06:27] LABS: BASOPHILS % (AUTO) 0.8 % (0.0-2.0); HEMATOCRIT 25 % (39-51); HEMOGLOBIN 8.9 g/dL (13.5-17.5); LYMPHOCYTES # (AUTO) 0.5 K/uL (0.8-4.8); LYMPHOCYTES % (AUTO) 10.1 % (20.0-44.0); MEAN CORPUSCULAR HEMOGLOBIN 36 PG (26.0-33.0); MEAN CORPUSCULAR HGB CONC 36 g/dl (31.0-36.0); MEAN CORPUSCULAR VOLUME 101 fL (80-96); MONOCYTES # (AUTO) 0.9 K/uL (0.1-1.30); MONOCYTES % (AUTO) 19.1 % (2.0-12.0); NEUTROPHILS # (AUTO) 3.3 K/uL (1.8-8.9); PLATELET COUNT (AUTO) 137 K/uL (150-450); RED BLOOD CELL COUNT(AUTO) 2.47 MIL/uL (4.5-6.0); RED CELL DISTRIBUTION WIDTH 12.6 % (11.5-15.0); WHITE BLOOD COUNT (AUTO) 4.7 K/uL (4.3-11.0)
[2024-06-22 07:06] LABS: CALCIUM, SERUM 8.5 mg/dL (8.5-10.1); CARBON DIOXIDE 25 mmol/L (21-32); CHLORIDE 106 mmol/L (98-107); CREATININE 0.5 mg/dL (0.6-1.3); GLUCOSE 109 mg/dL (74-106); MAGNESIUM 2.2 mg/dL (1.8-2.4); PHOSPHORUS 2.6 mg/dL (2.5-4.9); POTASSIUM 3.8 mmol/L (3.5-5.1); SODIUM SERUM 140 mmol/L (136-145); UREA NITROGEN, BLOOD 12 mg/dL (7-18)
[2024-06-22 08:00] VITALS: BP 131/88; TEMP 98.2; O2SAT 98
[2024-06-22] MEDS: EZETIMIBE 10 MG TABLET PO SCH (08:59)
[2024-06-22 09:43] LABS: IRON, SERUM 61 ug/dl (50-175); TOTAL IRON BINDING CAPACITY 209 ug/dl (250-450)
[2024-06-22 09:55] LABS: FERRITIN 898 ng/mL (8-388)
[2024-06-22] MEDS: IV NS 0.9% 1,000 ML IV PRN (14:50)
[2024-06-22 15:31] VITALS: BP 136/80; TEMP 98.1; O2SAT 98
[2024-06-22] MEDS ORDERED: BUPIVACAINE 0.5 % PF 150 MG/30 ML VIAL ONE (17:58)
[2024-06-22] MEDS ORDERED: VANCOMYCIN 1 GM VIAL ONE (17:58)
[2024-06-22] MEDS ORDERED: ANESTHESIA TRAY IN PYXIS 1 EA TRAY MC ONE (17:58)
[2024-06-22] MEDS ORDERED: POLYMYXIN B SULFATE 500,000 UNITS ONE (17:58)
[2024-06-22] MEDS ORDERED: MORPHINE SULFATE INJ 4 MG/ML DISP.SYRIN ONE (18:22)
[2024-06-22] MEDS ORDERED: FENTANYL PF 100MCG/2ML AMPUL ONE (18:22)
[2024-06-22] MEDS ORDERED: ROCURONIUM BROMIDE 50 MG/5 ML ONE (18:23)
[2024-06-22] MEDS ORDERED: CLINDAMYCIN 900 MG/6 ML VIAL ONE (18:52)
[2024-06-22] MEDS: CLINDAMYCIN 900 MG in IV D5W 50 ML IV SCH (19:00)
[2024-06-22 20:30] VITALS: BP 127/85; TEMP 97.7; O2SAT 97
[2024-06-22 20:45] VITALS: BP 115/58; TEMP 97.7; O2SAT 98
[2024-06-22] MEDS ORDERED: ANCEF 1 GM/50 ML D5W IV SCH (21:00)
[2024-06-22] MEDS ORDERED: MORPHINE SULFATE INJ 2 MG/ML DISP.SYRIN IV PRN (21:00)
[2024-06-22 21:30] VITALS: BP 126/80; TEMP 97.9; O2SAT 94
[2024-06-22] MEDS: IV D5/0.45 NACL W/20 MEQ KCL 1L IV PRN (22:28)
[2024-06-22 22:30] VITALS: BP 114/83; TEMP 97.5; O2SAT 98
[2024-06-23] MEDS: HYDROCODONE/APAP 10/325MG TABLET PO PRN (01:43)
[2024-06-23] MEDS ORDERED: CLINDAMYCIN 900 MG/6 ML VIAL ONE ×2 (05:25→05:26)
[2024-06-23] MEDS: CLINDAMYCIN 900 MG in IV D5W 50 ML IV SCH (06:13)
[2024-06-23] MEDS ORDERED: CLINDAMYCIN IV RTU IN D5W 900 MG/50 ML PIGGYBACK IV SCH (07:00)
[2024-06-23 07:19] LABS: BASOPHILS % (AUTO) 0.1 % (0.0-2.0); HEMATOCRIT 23 % (39-51); HEMOGLOBIN 7.6 g/dL (13.5-17.5); LYMPHOCYTES # (AUTO) 0.2 K/uL (0.8-4.8); LYMPHOCYTES % (AUTO) 3.6 % (20.0-44.0); MEAN CORPUSCULAR HEMOGLOBIN 36 PG (26.0-33.0); MEAN CORPUSCULAR HGB CONC 33 g/dl (31.0-36.0); MEAN CORPUSCULAR VOLUME 108 fL (80-96); MONOCYTES # (AUTO) 0.9 K/uL (0.1-1.30); MONOCYTES % (AUTO) 13.7 % (2.0-12.0); NEUTROPHILS # (AUTO) 5.4 K/uL (1.8-8.9); NEUTROPHILS % (AUTO) 82.6 % (43.0-81.0); PLATELET COUNT (AUTO) 161 K/uL (150-450); RED BLOOD CELL COUNT(AUTO) 2.13 MIL/uL (4.5-6.0); RED CELL DISTRIBUTION WIDTH 12.5 % (11.5-15.0); WHITE BLOOD COUNT (AUTO) 6.6 K/uL (4.3-11.0)
[2024-06-23 07:45] LABS: CALCIUM, SERUM 8.3 mg/dL (8.5-10.1); CARBON DIOXIDE 20 mmol/L (21-32); CHLORIDE 105 mmol/L (98-107); CREATININE 0.8 mg/dL (0.6-1.3); GLUCOSE 164 mg/dL (74-106); POTASSIUM 4.1 mmol/L (3.5-5.1); SODIUM SERUM 136 mmol/L (136-145); UREA NITROGEN, BLOOD 15 mg/dL (7-18)
[2024-06-23] MEDS: ENOXAPARIN SODIUM 40 MG/0.4 ML DISP.SYRIN SQ SCH (10:09)
[2024-06-23 18:44] LABS: HEMOGLOBIN 7.4 g/dL (13.5-17.5)
[2024-06-23 20:00] VITALS: BP 109/54; TEMP 98.8; O2SAT 97
[2024-06-23 20:26] VITALS: BP 109/54; TEMP 98.8; O2SAT 97
[2024-06-24] VITALS (12 sets, daily range): BP systolic 101–135; BP diastolic 67–85; TEMP 97.9–98.5; O2SAT 96–98
[2024-06-24 06:47] LABS: CARBON DIOXIDE 24 mmol/L (21-32); CHLORIDE 104 mmol/L (98-107); CREATININE 0.8 mg/dL (0.6-1.3); GLUCOSE 128 mg/dL (74-106); POTASSIUM 4.1 mmol/L (3.5-5.1); SODIUM SERUM 139 mmol/L (136-145); UREA NITROGEN, BLOOD 22 mg/dL (7-18)
[2024-06-24 06:50] LABS: BASOPHILS % (AUTO) 0.3 % (0.0-2.0); EOSINOPHILS % (AUTO) 0.1 % (0.0-6.0); LYMPHOCYTES # (AUTO) 0.5 K/uL (0.8-4.8); LYMPHOCYTES % (AUTO) 8.2 % (20.0-44.0); MEAN CORPUSCULAR HEMOGLOBIN 36 PG (26.0-33.0); MEAN CORPUSCULAR HGB CONC 35 g/dl (31.0-36.0); MEAN CORPUSCULAR VOLUME 101 fL (80-96); MONOCYTES % (AUTO) 16.9 % (2.0-12.0); NEUTROPHILS # (AUTO) 4.3 K/uL (1.8-8.9); NEUTROPHILS % (AUTO) 74.5 % (43.0-81.0); PLATELET COUNT (AUTO) 167 K/uL (150-450); RED CELL DISTRIBUTION WIDTH 12.6 % (11.5-15.0); WHITE BLOOD COUNT (AUTO) 5.7 K/uL (4.3-11.0)
[2024-06-24 07:23] LABS: CALCIUM, SERUM 8.5 mg/dL (8.5-10.1)
[2024-06-24 07:41] LABS: RED BLOOD CELL COUNT(AUTO) 1.91 MIL/uL (4.5-6.0)
[2024-06-24 07:43] LABS: HEMATOCRIT 19 % (39-51); HEMOGLOBIN 6.8 g/dL (13.5-17.5)
[2024-06-24] MEDS: PANTOPRAZOLE 40 MG TABLET.DR PO SCH (08:18)
[2024-06-24 09:49] LABS: BAND % (MANUAL) 2 % (0.0-5.0); LYMPHOCYTES % (MANUAL) 15 % (16-48); MONOCYTES % (MANUAL) 12 % (0-11.0); NEUTROPHILS % (MANUAL) 71 (42-76)
[2024-06-24 09:50] LABS: ANISOCYTOSIS 1+; PLATELET ESTIMATE ADEQUATE
[2024-06-24] MEDS: IV D5/0.45 NACL W/20 MEQ KCL 1L IV SCH (15:02)
[2024-06-25 04:00] VITALS: BP 148/81; TEMP 98.6; O2SAT 95
[2024-06-25 06:28] LABS: CALCIUM, SERUM 8.5 mg/dL (8.5-10.1); CARBON DIOXIDE 24 mmol/L (21-32); CHLORIDE 105 mmol/L (98-107); CREATININE 0.6 mg/dL (0.6-1.3); GLUCOSE 131 mg/dL (74-106); SODIUM SERUM 136 mmol/L (136-145); UREA NITROGEN, BLOOD 13 mg/dL (7-18)
[2024-06-25 07:06] LABS: BASOPHILS % (AUTO) 0.2 % (0.0-2.0); EOSINOPHILS % (AUTO) 0.1 % (0.0-6.0); HEMATOCRIT 26 % (39-51); HEMOGLOBIN 9.1 g/dL (13.5-17.5); LYMPHOCYTES # (AUTO) 0.4 K/uL (0.8-4.8); LYMPHOCYTES % (AUTO) 6.1 % (20.0-44.0); MEAN CORPUSCULAR HEMOGLOBIN 34 PG (26.0-33.0); MEAN CORPUSCULAR HGB CONC 36 g/dl (31.0-36.0); MEAN CORPUSCULAR VOLUME 97 fL (80-96); MONOCYTES % (AUTO) 16.4 % (2.0-12.0); NEUTROPHILS # (AUTO) 4.8 K/uL (1.8-8.9); NEUTROPHILS % (AUTO) 77.2 % (43.0-81.0); PLATELET COUNT (AUTO) 199 K/uL (150-450); RED BLOOD CELL COUNT(AUTO) 2.64 MIL/uL (4.5-6.0); RED CELL DISTRIBUTION WIDTH 15.1 % (11.5-15.0); WHITE BLOOD COUNT (AUTO) 6.3 K/uL (4.3-11.0)
[2024-06-25 08:00] VITALS: BP 134/82; TEMP 98.2; O2SAT 95
[2024-06-25 08:35] VITALS: BP 134/82
[2024-06-25] MEDS: THERAHONEY GEL 1.5 OZ TUBE TP SCH (09:08)
[2024-06-25 09:35] LABS: BASOPHILS % (MANUAL) 0 % (0.0-2.0); EOSINOPHILS % (MANUAL) 0 % (0-4); LYMPHOCYTES % (MANUAL) 5 % (16-48); MONOCYTES % (MANUAL) 14 % (0-11.0); NEUTROPHILS % (MANUAL) 81 (42-76)
[2024-06-25 09:36] LABS: ANISOCYTOSIS 1+; PLATELET ESTIMATE ADEQUATE
[2024-06-25] MEDS: DOCUSATE SODIUM 100 MG CAPSULE PO SCH (13:00)
[2024-06-25] MEDS: LACTULOSE 10 G/15 ML UDC (PYXIS) PO ONE (13:01)
== END 2024-06-25 16:30 | DRG 481 ==
LOC: ER 04:53 → MED 06:45
PROVIDERS: ADMIT Internal Medicine; ATTEND Nurse Practitioner Acute Care
PROC: 0QS706Z Reposition Left Upper Femur with Intramedullary Internal Fixation Device, Open Approach (ICD-10-PCS; principal; 2024-06-22)
PROC: 30233N1 Transfusion of Nonautologous Red Blood Cells into Peripheral Vein, Percutaneous Approach (ICD-10-PCS; 2024-06-24)
DX: S72.142A Displaced intertrochanteric fracture of left femur, initial encounter for closed fracture (principal); L97.919 Non-pressure chronic ulcer of unspecified part of right lower leg with unspecified severity; Y92.9 Unspecified place or not applicable; I10 Essential (primary) hypertension; E83.42 Hypomagnesemia; W18.30XA Fall on same level, unspecified, initial encounter; K21.9 Gastro-esophageal reflux disease without esophagitis; Z87.19 Personal history of other diseases of the digestive system; E78.00 Pure hypercholesterolemia, unspecified; Z88.0 Allergy status to penicillin; Z79.899 Other long term (current) drug therapy; Z96.641 Presence of right artificial hip joint; M81.0 Age-related osteoporosis without current pathological fracture; D53.9 Nutritional anemia, unspecified; G20.A1 Parkinson's disease without dyskinesia, without mention of fluctuations; Z98.890 Other specified postprocedural states; I69.398 Other sequelae of cerebral infarction; I69.311 Memory deficit following cerebral infarction; R26.89 Other abnormalities of gait and mobility; Z87.81 Personal history of (healed) traumatic fracture
CPT/HCPCS: 36415; 70450-TC; 71045-TC; 73502; 73700-TC; 80048-TC; 80061-TC; 81001; 82728-TC; 83540-TC; 83735-TC; 84100-TC; 84439-TC; 84443-TC; 85025-TC; 85027-TC; 85730-TC; 86850-TC; 87081-TC; 93307-TC; 97112-TC; 97116-TC; 97530-TC; 97535-TC; A4223; A6209; A6253; C1713; G0378; J0330; J1100; J1650; J2270; J2405; J2470; J2704; J3010; J3370; J3475; J3480; J3490; J7030; J7040; J7050; J7060; P9016